=== PATIENT | male | born 1980 ===

== ENCOUNTER 2018-05-23 09:54 | Day surgery (SDC) | payer OTHER ==
[2018-05-23] VITALS (8 sets, daily range): BP systolic 112–145; BP diastolic 63–89
[~2018-05-23] VITALS: Ht 175.3 cm; Wt 91.0 kg
[~2018-05-23 09:54] MED LIST: ACET-2119 PO; DOCU-261 PO; acetaminophen 325mg tablet PO ONE; cefazolin/dext.iso 2gm/100 ML IV ONE; cefazolin/dext.iso 2gm/100ml 100 ML IV ONE; cefazolin/dext.iso 2gm/50ml 50 ML IV ONE; famotidine 20mg tablet PO ONE; gabapentin 300mg capsule PO ONE; oxyCODONE SR 10mg (sust. release) tab -2 tabs (20mg) PO ONE; ringers solution, lacted 1,000 ML IV SCH; vancomycin inj 1,500 MG in normal saline 300ml IV soln IV ONE
[2018-05-23] MEDS ORDERED: famotidine 20mg tablet PO ONE (10:52)
[2018-05-23] MEDS ORDERED: gabapentin 300mg capsule PO ONE (10:52)
[2018-05-23] MEDS ORDERED: acetaminophen 325mg tablet PO ONE (10:52)
[2018-05-23] MEDS ORDERED: vancomycin inj 1,500 MG in normal saline 300ml IV soln IV ONE (10:52)
[2018-05-23] MEDS ORDERED: ringers solution, lacted 1,000 ML IV SCH ×2 (10:52→11:01)
[2018-05-23] MEDS ORDERED: oxyCODONE SR 10mg (sust. release) tab -2 tabs (20mg) PO ONE (10:52)
[2018-05-23] MEDS ORDERED: ceFAZolin 2gm in dextrose, iso 100 ML IV ONE (10:55)
[2018-05-23] MEDS ORDERED: meperidine/PF 25mg/ml syringe IV PRN ×3 (11:05)
[2018-05-23] MEDS ORDERED: ondansetron/PF 4mg/2ml inj IV PRN (11:05)
[2018-05-23] MEDS ORDERED: proCHLORperazine 10 MG/2 ml inj IV PRN (11:05)
[2018-05-23] MEDS ORDERED: morphine 4 MG/ML inj SYRINge IV PRN ×2 (11:05)
[2018-05-23] MEDS ORDERED: NO HOME MEDS (11:22)
[2018-05-23] MEDS ORDERED: ROPIVAcaine 0.5% (5mg/ml) 30ml vial ONE ×2 (11:56→12:30)
[2018-05-23] MEDS ORDERED: ceFAZolin 1000mg inj ONE (11:56)
[2018-05-23] MEDS ORDERED: LIDOcaine 1%/PF 5ML 10 MG/ML VIAL ONE (12:26)
[2018-05-23] MEDS ORDERED: dexamethasone sod phosphate 10mg/ml inj ONE (12:26)
[2018-05-23] MEDS ORDERED: sevoflurane 250ml liquid IH ONE (12:26)
[2018-05-23] MEDS ORDERED: fentaNYL/PF 50MCG/1 ML 2ML syringe ONE (12:28)
[2018-05-23] MEDS ORDERED: MIDAZolam 5mg/5ml vial ONE (12:28)
[2018-05-23] MEDS ORDERED: propofol inj 20 ML IV ONE (12:30)
[2018-05-23] MEDS ORDERED: ondansetron/PF 4mg/2ml inj ONE (14:55)
[2018-05-23] MEDS ORDERED: ketorolac trometh. 30mg/ml inj. ONE (15:31)
--- NOTE | 2018-05-23 15:50 | NUR ---
Received from OR via BED , accompanied by Anesthesiologist DR LARA and report given by Anesthesiolgist. PATIENT WAKING UP, DENIES PAIN, V/S WNL, NEUROVASCULAR CHECKLS INTACT, 18G PIV TO RUE, SCD ON, DRESSING LEFT KNEE CDI W/ COLD POWDER PACK TO LEFT KNEE AND BRACE LOCKED IN EXTENTION . GUARDS AT BEDSIDE X2
--- NOTE | 2018-05-23 16:50 | NUR ---
PATIENT A&OX4, DENIES PAIN, V/S WNL, NEUROVASCULAR CHECKLS INTACT, PIV D/C, SCD OFF, DRESSING CDI TO LEFT KNEE WITH BRACE LOCKED IN EXTENSION, I HAVE REVIEWED D/C INSTRUCTIONS WITH PATIENT AND GUARDS AND THEY HAVE VERBALIZED UNDERSTANDING. PATIENT D/C WITH ALL BELONGINGS AND GUARDS TRANSPORTED BACK TO [facility].
== END 2018-05-23 16:50 ==
LOC: PAS 09:54
PROVIDERS: ATTEND Orthopaedic Surgery
DX: S83.512A Sprain of anterior cruciate ligament of left knee, initial encounter (principal); S83.522A Sprain of posterior cruciate ligament of left knee, initial encounter; S83.282A Other tear of lateral meniscus, current injury, left knee, initial encounter; X58.XXXA Exposure to other specified factors, initial encounter; Y93.89 Activity, other specified; Y92.89 Other specified places as the place of occurrence of the external cause; Y99.8 Other external cause status
CPT/HCPCS: 29881; 29888; 82948; A6449; C1713; C1776; J0690; J1100; J1885; J2001; J2175; J2250; J2405; J2704; J3010; J3370; J7120; L1832; A7000; J2795; J7030